=== PATIENT | female | born 1945 | race Caucasian/White ===

== ENCOUNTER 2018-04-06 08:41 | Emergency (ER) | payer MEDICARE ==
[~2018-04-06] VITALS: Ht 162.6 cm; Wt 77.1 kg
[2018-04-06 08:42] VITALS: BP 111/65
[2018-04-06] MEDS ORDERED: IBUPROFEN 200 MG TABLET ONE (09:22)
[2018-04-06] MEDS ORDERED: IBUPROFEN 200 MG TABLET PO ONE (09:30)
--- NOTE | 2018-04-06 09:32 | NUR ---
ICE APPLIED TO RIGHT KNEE. PT GIVEN MEDICATIONS PER PA ORDDER.
== END 2018-04-06 10:14 | disposition home or self-care (01) ==
LOC: ED 09:00
DX: G89.11 Acute pain due to trauma (principal); M25.561 Pain in right knee; X58.XXXA Exposure to other specified factors, initial encounter; Y93.41 Activity, dancing; Y92.511 Restaurant or cafe as the place of occurrence of the external cause; Y99.8 Other external cause status
CPT/HCPCS: 99283

== ENCOUNTER 2018-08-24 05:40 | Inpatient (IN) | payer MEDICARE ==
[2018-08-22 10:22] LABS: ANION GAP 5 mmol/L (5-15); CALCIUM 9.5 mg/dL (8.5-10.1); CHLORIDE 109 mmol/L (98-107); CREATININE 1.03 mg/dL (0.55-1.02)
[2018-08-22 10:25] LABS: INTERNATIONAL NORMALIZED RATIO 0.93 (0.93-1.1); PROTHROMBIN TIME 9.8 Seconds (9.6-11.5)
[2018-08-22 10:43] LABS: BASOPHILS # (AUTO) 0.03 x10^3/uL (0-0.1); BASOPHILS % (AUTO) 1 % (0-1); EOSINOPHILS # (AUTO) 0.27 x10^3/uL (0-0.4); EOSINOPHILS % (AUTO) 4 % (1-7); LYMPHOCYTES % (AUTO) 32 % (22-44); MD NO; MEAN CORPUSCULAR HEMOGLOBIN 33.6 pg (27.0-34.8); MEAN CORPUSCULAR VOLUME 96.1 fL (80-100); MEAN PLATELET VOLUME 8.4 fL (7.4-10.4); MONOCYTES # (AUTO) 0.66 x10^3/uL (0.2-0.8); MONOCYTES % (AUTO) 11 % (2-9); NEUTROPHILS # (AUTO) 3.25 x10^3/uL (1.8-6.8); NEUTROPHILS % (AUTO) 52 % (42-75); PLATELET COUNT 329 x10^3/uL (130-400); RED BLOOD COUNT 4.05 x10^6/uL (3.82-5.3); RED CELL DISTRIBUTION WIDTH 12.6 % (9.6-15.2)
[2018-08-22 12:23] LABS: HEMOGLOBIN A1C 5.8 % (4.2-6.3)
[~2018-08-24] VITALS: Ht 160 cm; Wt 88.3 kg
[~2018-08-24 05:40] MED LIST: antacid PO; simvastatin PO
[2018-08-24] MEDS ORDERED: LACTATED RINGERS 1,000 ML IV SCH (06:15)
[2018-08-24] MEDS ORDERED: SIMV40TA3 PO (06:23)
[2018-08-24] MEDS ORDERED: PANT40TA5 PO (06:23)
[2018-08-24] MEDS ORDERED: CETI10CA PO (06:23)
[2018-08-24] MEDS ORDERED: KETOROLAC 60 MG/2 ML ONE (06:25)
[2018-08-24] MEDS ORDERED: ROPIvacaine/PF 0.5%, 20 ML ONE (06:26)
[2018-08-24] MEDS ORDERED: EPINEPHRINE 1 MG/ML, 1ML ONE (06:26)
[2018-08-24] MEDS ORDERED: TRANEXAMIC ACID 100 MG/ML, 10ML ONE ×2 (06:26)
[2018-08-24] MEDS ORDERED: SODIUM CHLORIDE 0.9% 50 ML ONE (06:26)
[2018-08-24] MEDS ORDERED: VANCOMYCIN 1,000 MG ONE (06:26)
[2018-08-24] MEDS ORDERED: GABAPENTIN 300 MG CAPSULE PO ONE (06:30)
[2018-08-24] MEDS ORDERED: ACETAMINOPHEN 500 MG TABLET PO ONE (06:30)
[2018-08-24] MEDS ORDERED: MIDAZOLAM 1 MG/ML, 2ML ONE (06:42)
[2018-08-24] MEDS ORDERED: FENTANYL PF 250 MCG/5ML ONE ×2 (06:42→08:42)
[2018-08-24] MEDS ORDERED: ROPIvacaine/PF 0.2%, 20 ML ONE (06:50)
[2018-08-24] MEDS ORDERED: GLYCOPYRROLATE 0.2MG/1ML, 5ML ONE (06:55)
[2018-08-24] MEDS ORDERED: DEXAMETHASONE 4 MG/ML, 1ML ONE (06:55)
[2018-08-24] MEDS ORDERED: NEOSTIGMINE 1 MG/ML, 10ML ONE (06:55)
[2018-08-24] MEDS ORDERED: ONDANSETRON 2MG/ML, 2ML ONE (06:55)
[2018-08-24] MEDS ORDERED: ROCURONIUM 10MG/ML,5ML ONE (06:55)
[2018-08-24] MEDS ORDERED: CEFAZOLIN 1,000 MG ONE (06:55)
[2018-08-24] MEDS ORDERED: PROPOFOL 10 MG/ML, 20ML ONE (06:55)
[2018-08-24] MEDS ORDERED: ACETAMINOPHEN 650 MG/20.3 ML UDC PO PRN (07:00)
[2018-08-24] MEDS ORDERED: ZOLPIDEM 5MG TABLET PO PRN (07:00)
[2018-08-24] MEDS ORDERED: BISACODYL 10 MG SUPP PR PRN (07:00)
[2018-08-24] MEDS ORDERED: MAGNESIUM HYDROXIDE 8%, 30ML UDC PO PRN (07:00)
[2018-08-24] MEDS ORDERED: DIPHENHYDRAMINE 25 MG CAPSULE PO PRN (07:00)
[2018-08-24] MEDS ORDERED: SCOPOLAMINE PATCH, 1.5MG PATCH.TD72 TD ONE (07:00)
[2018-08-24] MEDS ORDERED: HYDROmorphone 2 MG/ML, 1ML IV PRN (07:00)
[2018-08-24] MEDS ORDERED: HYDROcodone/APAP 5/325 TABLET PO PRN (07:00)
[2018-08-24] MEDS ORDERED: SENNA/DOCUSATE TABLET PO PRN (07:00)
[2018-08-24] MEDS ORDERED: ONDANSETRON ODT 4 MG PO PRN (07:00)
[2018-08-24] MEDS ORDERED: ONDANSETRON ODT 8 MG PO PRN (07:30)
[2018-08-24] MEDS ORDERED: PROMETHAZINE 25 MG SUPP PR PRN (07:30)
[2018-08-24] MEDS ORDERED: HALOPERIDOL 5 MG/ML IV PRN (07:30)
[2018-08-24] MEDS ORDERED: FENTANYL PF 100 MCG/2ML IV PRN (07:30)
[2018-08-24] MEDS ORDERED: MORPHINE SULFATE 4 MG/ML, 1ML IVPush PRN (07:30)
[2018-08-24] MEDS ORDERED: ONDANSETRON 2MG/ML, 2ML IV PRN (07:30)
[2018-08-24] MEDS ORDERED: MEPERIDINE/PF 25MG/0.5ML IVPush PRN (07:30)
[2018-08-24] MEDS ORDERED: hydrALAzine 20 MG/ML, 1ML IV PRN (07:30)
[2018-08-24] MEDS ORDERED: PROMETHAZINE 25 MG/ML, 1ML IV PRN (07:30)
[2018-08-24] MEDS ORDERED: OXYcodone 5 MG/5 ML ORAL.SOL UDC PO PRN (07:30)
[2018-08-24] MEDS ORDERED: PROMETHAZINE 25 MG/ML, 1ML IM PRN ×2 (07:30)
[2018-08-24] MEDS ORDERED: HYDROmorphone 2 MG/ML, 1ML IVPush PRN (07:30)
[2018-08-24] MEDS ORDERED: PROMETHAZINE 12.5 MG SUPP PR PRN (07:30)
[2018-08-24] MEDS ORDERED: LABETALOL 5MG/ML, 20ML IV PRN (07:30)
[2018-08-24] MEDS: PANTOPROZOLE 40MG TABLET PO SCH (09:00)
[2018-08-24] MEDS ORDERED: PHENYLEPHRINE 10 MG/ML ONE (09:14)
[2018-08-24] MEDS ORDERED: OXYcodone 5 MG/5 ML ORAL.SOL UDC ONE (09:52)
[2018-08-24] MEDS ORDERED: FENTANYL PF 100 MCG/2ML ONE (09:52)
[2018-08-24 10:50] VITALS: BP 122/69
[2018-08-24] MEDS: DOCUSATE 100 MG CAPSULE PO SCH ×2 (12:01→20:39)
[2018-08-24] MEDS: NS + 20MEQ KCL 1,000 ML IV SCH ×2 (13:06→23:30)
[2018-08-24 13:15] VITALS: BP 111/61
[2018-08-24] MEDS: OXYcodone IR 5MG TABLET PO PRN ×2 (14:35→19:11)
[2018-08-24] MEDS: ONDANSETRON 2MG/ML, 2ML IV PRN (17:19)
[2018-08-24] MEDS: CEFAZOLIN PMX 2GM/50ML 50 ML IVPB SCH (17:19)
[2018-08-24] MEDS: TAMSULOSIN 0.4 MG CAP.ER.24H PO SCH (17:52)
[2018-08-24] MEDS: ASPIRIN 81 MG TABLET EC PO SCH (17:52)
[2018-08-24 18:30] VITALS: BP 116/76
[2018-08-24] MEDS: SIMVASTATIN 40 MG TABLET PO SCH (20:39)
[2018-08-25 00:17] VITALS: BP 107/54
[2018-08-25] MEDS: CEFAZOLIN PMX 2GM/50ML 50 ML IVPB SCH (01:30)
[2018-08-25] MEDS: OXYcodone IR 5MG TABLET PO PRN ×6 (02:08→20:10)
[2018-08-25] MEDS: PANTOPROZOLE 40MG TABLET PO SCH (02:08)
[2018-08-25 04:19] VITALS: BP 127/73
[2018-08-25] MEDS ORDERED: DEXAMETHASONE 4 MG/ML, 1ML IVPush SCH (06:00)
[2018-08-25] MEDS: ASPIRIN 81 MG TABLET EC PO SCH ×2 (06:07→19:01)
[2018-08-25] MEDS: ONDANSETRON 2MG/ML, 2ML IV PRN ×3 (06:15→18:25)
[2018-08-25 08:47] VITALS: BP 101/62
[2018-08-25] MEDS: DOCUSATE 100 MG CAPSULE PO SCH ×2 (09:39→20:10)
[2018-08-25] MEDS: TAMSULOSIN 0.4 MG CAP.ER.24H PO SCH (09:40)
[2018-08-25] MEDS: NS + 20MEQ KCL 1,000 ML IV SCH ×2 (12:05→22:23)
[2018-08-25 12:47] VITALS: BP 92/56
[2018-08-25] MEDS ORDERED: OXYC5TAB2 PO (16:16)
[2018-08-25] MEDS ORDERED: TRAM50TA2 PO (16:17)
[2018-08-25] MEDS ORDERED: MELO7.5T31 PO (16:18)
[2018-08-25 18:55] VITALS: BP 139/76
[2018-08-25] MEDS: SIMVASTATIN 40 MG TABLET PO SCH (20:10)
[2018-08-26] MEDS: OXYcodone IR 5MG TABLET PO PRN ×5 (00:12→14:57)
[2018-08-26 00:21] VITALS: BP 116/59
[2018-08-26] MEDS: PANTOPROZOLE 40MG TABLET PO SCH (05:05)
[2018-08-26] MEDS: ASPIRIN 81 MG TABLET EC PO SCH (05:05)
[2018-08-26 08:29] VITALS: BP 100/51
[2018-08-26] MEDS: DOCUSATE 100 MG CAPSULE PO SCH (08:34)
[2018-08-26] MEDS: TAMSULOSIN 0.4 MG CAP.ER.24H PO SCH (08:34)
[2018-08-26] MEDS: NS + 20MEQ KCL 1,000 ML IV SCH (08:34)
[2018-08-26] MEDS ORDERED: ONDANSETRON ODT 4 MG PO SCH (13:00)
[2018-08-26 13:13] VITALS: BP 93/60
[2018-08-26 15:05] VITALS: BP 111/68
[2018-08-26] MEDS ORDERED: PANTOPROZOLE 40MG TABLET PO SCH (21:00)
== END 2018-08-26 15:32 | disposition home or self-care (01) | DRG 469 ==
LOC: OUT 05:40 → 4NOR 10:43 → OUT 23:00 → 4NOR 23:01
PROVIDERS: ADMIT Orthopaedic Surgery; ATTEND Orthopaedic Surgery
PROC: 3E0T3BZ Introduction of Anesthetic Agent into Peripheral Nerves and Plexi, Percutaneous Approach (ICD-10-PCS; 2018-08-24)
PROC: 0SRC0J9 Replacement of Right Knee Joint with Synthetic Substitute, Cemented, Open Approach (ICD-10-PCS; principal; 2018-08-24 08:15)
DX: M17.11 Unilateral primary osteoarthritis, right knee (principal); N17.0 Acute kidney failure with tubular necrosis; R33.9 Retention of urine, unspecified; R11.2 Nausea with vomiting, unspecified; K21.9 Gastro-esophageal reflux disease without esophagitis; E78.5 Hyperlipidemia, unspecified
CPT/HCPCS: 36415; 80048; 83036; 85014; 85018; 85025; 85610; 85730; 87081; 93005; C1713; G0378; J0171; J0690; J1100; J1885; J2250; J2405; J2704; J2710; J2795; J3010; J3370; J3480; Q0162; C1776; J2370